=== PATIENT | female | born 1960 | race Caucasian/White ===

== ENCOUNTER 2021-02-14 08:05 | Emergency (ER) | payer MEDICARE, MEDICAID, SELFPAY ==
[2021-02-14 08:15] VITALS: BP 139/77; PULSE 74; RESP 22; TEMP 36.7; O2SAT 95
--- NOTE | 2021-02-14 08:29 | ED.SOB ---
HPI - SOB/Dyspnea General Chief Complaint: Upper Respiratory Infection Stated Complaint: Chest pain, shortness of breath Time Seen by Provider: 02/14/21 08:34 Source: patient and RN notes reviewed Mode of arrival: ambulatory Limitations: no limitations History of Present Illness HPI Narrative: 60-year-old female with history of emphysema presents with 4-day history of cough, shortness of breath, chest wall pain with coughing. She reports nasal congestion, rhinorrhea, headache. She reports symptoms started with a cough 4 days ago and have progressively worsened. Reports she is using her albuterol inhaler more than usual. Reports she last used it last night. She reports sweats, general malaise. She denies fever, decreased sense of taste and smell, chest pain, nausea, vomiting, diarrhea. She denies [id number] intervention. She denies known sick contacts, reports musical told she was vaccinated for Covid in November. MD elicited complaint: shortness of breath Related Data Home Medications Medication Instructions Recorded Confirmed albuterol sulfate [ProAir HFA] INHALATION 02/14/21 atorvastatin 02/14/21 buprenorphine 02/14/21 famotidine 02/14/21 fenofibrate mg 02/14/21 fluoxetine mg 02/14/21 fluticasone propion-salmeterol INHALATION 02/14/21 [Advair Diskus] gabapentin 02/14/21 hydrocodone-acetaminophen tablet 02/14/21 levothyroxine 02/14/21 lurasidone [Latuda] mg 02/14/21 metformin mg 02/14/21 pantoprazole PO 02/14/21 trazodone 02/14/21 Allergies Allergy/AdvReac Type Severity Reaction Status Date / Time cilastatin Allergy Unknown RASH Verified 02/14/21 08:31 clindamycin Allergy Unknown ANAPHYLAXIS Verified 02/14/21 08:31 imipenem Allergy Unknown RASH Verified 02/14/21 08:31 risperidone Allergy Unknown syncopal Verified 02/14/21 08:31 episode Ynhcfxh-Tvp-Yef Reductase Allergy Unknown RASH Verified 02/14/21 08:31 Inhibitor Review of Systems Review of Systems: Narrative: CONSTITUTIONAL: Reports malaise, sweats. Denies chills or fever. EYES: Denies visual changes, redness, or discharge. ENT: Reports rhinorrhea, congestion. Denies sinus pain, otalgia and sore throat. CARDIOVASCULAR: Denies chest pain, palpitations, or edema. RESPIRATORY: Reports cough, dyspnea, chest wall pain with coughing. GASTROINTESTINAL: Denies abdominal pain, nausea, vomiting, diarrhea SKIN: Denies rash or itching. MUSCULOSKELETAL: Denies myalgia. NEUROLOGIC: Reports headache. All systems reviewed & are unremarkable except as noted in HPI and below PMFSH Comments At time of signature, agree with nursing past medical, surgical, social and family history. There is no relevant family history pertinent to the presenting complaint Exam Narrative: Exam Narrative: GENERAL: Well-appearing, well-nourished, and in no acute distress. HEAD: Normocephalic EYES: PERRLA, conjunctivae clear ENT: Nares clear, turbinates edematous and erythematous, clear discharge. Mucous membranes moist. TM pearly rios with dull light reflex bilaterally; no tragal tenderness. Oropharynx not erythematous without lesions. Tonsils not enlarged and without exudate, no drooling, no hoarseness, no trismus, uvula midline. NECK: Supple. No lymphadenopathy CHEST: Scattered inspiratory, expiratory wheeze, scattered rhonchi, aeration fair, breath sounds equal. Lisa, or stridor. No respiratory distress, speaks in full sentences. Harsh cough noted HEART: Regular rate and rhythm. No murmur heard. SKIN: Warm, dry, no rash. NEURO: Alert and oriented x3. PSYCH: Normal mood and affect Course Course Emergency Course: Patient is aware of diagnosis, understands and agrees to treatment plan. Anticipatory guidance given. Patient agrees to follow-up as directed and is aware of reasons to seek care at the emergency department. Portions of this record may have been created with voice recognition software Reevaluation(s) Reevaluation #1: Aeration improved, wheezing
[2021-02-14] MEDS: ALBUTEROL SULFATE NEB 2.5 MG/3 ML INH INHALATION (08:52)
[2021-02-14] MEDS: methylPREDNISolone SOD SUCC 125 MG VIAL IM (08:52)
[2021-02-14] MEDS: IPRATROPIUM BR 0.02% INH SOLN 0.5 MG/2.5 ML VIAL INHALATION (08:53)
== END 2021-02-14 09:43 | disposition home or self-care (01) ==
PROVIDERS: Emergency Provider Nurse Practitioner; PCP Nurse Practitioner Family
DX: J06.9 Acute upper respiratory infection, unspecified (principal); R05 Cough; J43.9 Emphysema, unspecified; C34.90 Malignant neoplasm of unspecified part of unspecified bronchus or lung; C78.89 Secondary malignant neoplasm of other digestive organs; M19.90 Unspecified osteoarthritis, unspecified site; E89.0 Postprocedural hypothyroidism
CPT/HCPCS: 94640; 96372; 99213; G0463; J2930

== ENCOUNTER 2021-02-17 10:00 | Emergency (ER) | payer MEDICARE, MEDICAID, SELFPAY ==
--- NOTE | ~2021-02-17 | XR_ITS ---
XR chest 2V 02/17/2021 10:26 Indication: Cough, shortness of breath. Lung cancer. Procedure: 2 view chest Comparison: No prior studies for comparison. Findings: There are interstitial infiltrates of the mid and lower lungs zones. Heart size normal. No pleural effusion or pneumothorax. There is mild peribronchial thickening. There is a right shoulder a rthroplasty. Impression: 1: Mild interstitial infiltrates of the mid and lower lung zones which may reflect mild interstitial edema or pneumonia. Reviewed, dictated and finalized at location B. Impression: 1: Mild interstitial infiltrates of the mid and lower lung zones which may refl ect mild interstitial edema or pneumonia.
[2021-02-17 10:12] VITALS: BP 126/60; PULSE 81; RESP 14; TEMP 36.9; O2SAT 93
--- NOTE | 2021-02-17 10:29 | ED.GENADULT ---
HPI - General Adult General Chief complaint: Upper Respiratory Infection Stated complaint: Shortness of breath, coughing, chest pain Time Seen by Provider: 02/17/21 10:29 Source: patient Mode of arrival: ambulatory History of Present Illness HPI narrative: Patient presents with continued cough. Patient was evaluated 2 days ago and started on doxycycline Medrol Dosepak and given inhaler for her symptoms. Patient states she continues to have a cough. Patient has not follow-up with her primary care provider as advised. Patient denies any shortness of breath and no chest pain. Patient states she is taken medication as prescribed, but is still complaining of cough. Related Data Home Medications Medication Instructions Recorded Confirmed albuterol sulfate [ProAir HFA] See Rx Instructions .ROUTE .COMPLEX 02/14/21 02/17/21 atorvastatin 40 mg PO DAILY 02/14/21 02/17/21 buprenorphine 15 mcg TOPICAL WEEKLY 02/14/21 02/17/21 famotidine 40 mg PO DAILY 02/14/21 02/17/21 fenofibrate 160 mg PO DAILY 02/14/21 02/17/21 fluoxetine 20 mg PO DAILY 02/14/21 02/17/21 fluticasone propion-salmeterol See Rx Instructions .ROUTE .COMPLEX 02/14/21 02/17/21 [Advair Diskus] gabapentin 300 mg PO USEASDIRECTD 02/14/21 hydrocodone-acetaminophen 1 tablet PO BID PRN 02/14/21 02/17/21 levothyroxine 200 mcg PO DAILY 02/14/21 02/17/21 lurasidone [Latuda] 60 mg PO DAILY 02/14/21 02/17/21 metformin 500 mg PO BID 02/14/21 02/17/21 pantoprazole 40 mg PO DAILY 02/14/21 02/17/21 trazodone 100 mg PO TID 02/14/21 02/17/21 Allergies Allergy/AdvReac Type Severity Reaction Status Date / Time cilastatin Allergy Unknown RASH Verified 02/17/21 10:19 clindamycin Allergy Unknown ANAPHYLAXIS Verified 02/17/21 10:19 imipenem Allergy Unknown RASH Verified 02/17/21 10:19 risperidone Allergy Unknown syncopal Verified 02/17/21 10:19 episode Ybnexze-Mal-Msx Reductase Allergy Unknown RASH Verified 02/17/21 10:19 Inhibitor Review of Systems Review of Systems: Narrative: CONSTITUTIONAL: Denies fever, chills, or sweats. EYES: Denies visual changes, redness, or discharge. ENT: Denies rhinorrhea, congestion, sore throat, or otalgia. CARDIOVASCULAR: Denies chest pain, palpitations, or edema. RESPIRATORY: Denies cough or dyspnea. GASTROINTESTINAL: Denies abdominal pain, nausea, vomiting, or diarrhea. GENITOURINARY: Denies dysuria or hematuria. SKIN: Denies rash or itching. MUSCULOSKELETAL: Denies back pain, joint pain, or myalgia. NEUROLOGIC: Denies headache, numbness, or weakness. PSYCHIATRIC: Denies anxiety or depression. PMFSH Comments At time of signature, agree with nursing past medical, surgical, social and family history. There is no relevant family history pertinent to the presenting complaint Exam Narrative: Exam Narrative: GENERAL: Well-appearing, well-nourished, and in no acute distress. HEAD: Normocephalic, atraumatic. EYES: PERRLA and EOMI. ENT: Nares clear, no rhinorrhea or epistaxis. Mucous membranes moist. NECK: Supple. CHEST: few scattered wheezes. No respiratory distress. Patient complains of cough no shortness of breath no chest pain HEART: Regular rate and rhythm. No murmur heard. Normal peripheral pulses. ABDOMEN: Soft, nontender, nondistended, normal active bowel sounds. EXTREMITIES: Normal range of motion. No edema. SKIN: Warm, dry, no rash. NEURO: No focal deficits. Alert and oriented x3. [place] Coma Scale Eye Opening: Spontaneous 4 Angela Coma Scale Motor: Obeys Commands 6 Angela Coma Scale Verbal: Oriented 5 Angela Coma Scale Total 15 Course Vital Signs Vital signs: Vital Signs Temperature 36.9 C 02/17/21 10:12 Pulse Rate 81 02/17/21 10:12 Respiratory Rate 14 02/17/21 10:12 Blood Pressure 126/60 02/17/21 10:12 Pulse Oximetry 93 02/17/21 10:12 Temperature 36.9 C 02/17/21 10:12 Pulse Rate 81 02/17/21 10:12 Respiratory Rate 14 02/17/21 10:12 Blood Pressure 126/60 02/17/21 10:12 Pulse Oximetry 9
== END 2021-02-17 10:55 | disposition home or self-care (01) ==
PROVIDERS: Emergency Provider Nurse Practitioner Family; PCP Nurse Practitioner Family
DX: J44.9 Chronic obstructive pulmonary disease, unspecified (principal); R05 Cough; C34.90 Malignant neoplasm of unspecified part of unspecified bronchus or lung; C78.89 Secondary malignant neoplasm of other digestive organs; M19.90 Unspecified osteoarthritis, unspecified site; E89.0 Postprocedural hypothyroidism
CPT/HCPCS: 71046; 99213; G0463